=== PATIENT | female | born 2000 | race African-American/Black ===

== ENCOUNTER 2020-10-25 22:25 | Emergency (ER) | payer MEDICAID ==
[~2020-10-25] VITALS: Ht 167.6 cm; Wt 86.0 kg
[2020-10-25 22:48] VITALS: BP 120/87
[2020-10-25] MEDS ORDERED: TETANUS, DIPHTHERIA, PERTUSSIS VAC/PF 0.5ML (>7YR OLD) IM ONE (23:15)
[2020-10-25] MEDS ORDERED: ACETAMINOPHEN 325MG TABLET PO ONE (23:15)
[2020-10-25] MEDS ORDERED: VISCOUS LIDOCAINE 2% 15 ML UDC PO ONE (23:30)
[2020-10-25] MEDS ORDERED: LIDOCAINE HCL/EPINEPHRINE 1%-EPI 1:100,000 10 ML VIAL IJ ONE (23:30)
[2020-10-25] MEDS ORDERED: ACET-2708 MT (23:43)
[2020-10-25] MEDS ORDERED: LIDOCAINE HCL/EPINEPHRINE 1%-EPI 1:100,000 20 ML VIAL INFIL SCH (23:45)
== END 2020-10-26 00:53 | disposition home or self-care (01) ==
LOC: ER 22:25
DX: S01.511A Laceration without foreign body of lip, initial encounter (principal); M25.512 Pain in left shoulder; X58.XXXA Exposure to other specified factors, initial encounter; Y93.B3 Activity, free weights; Y92.9 Unspecified place or not applicable; Y99.9 Unspecified external cause status
CPT/HCPCS: 12011; 90471; 90715; 99283; A4217; J3490; Z7610